=== PATIENT | female | born 1955 | race Caucasian/White ===

== ENCOUNTER 2017-07-31 08:55 | Day surgery (SDC) | payer BC ==
[~2017-07-31 08:55] MED LIST: Lactated Ringers 1,000 ML IV SCH; Lidocaine 1%/Sod Bicarbonate in NS 8.4% 1 ML Syringe IDERM PRN; Sodium Chloride 0.9% 10 ML Syringe FLUSH PRN
--- NOTE | 2017-07-31 09:45 | PCM.PREANE ---
Preanesthetic Assessment - Procedure Proposed Procedure: Diagnostic colonsocopy - Anesthesia/Transfusion/Family Hx Anesthesia History: Prior Anesthesia Without Reaction Family History of Anesthesia Reaction: No Transfusion History: Prior Transfusion Without Reaction Type of Transfusion Reactions: Reports: Unknown Additional History: Parkinsons, hairy cell leukemia - Review of Systems General: No Symptoms Pulmonary: Other (INGE with CPAP) Cardiovascular: No Symptoms Gastrointestinal: No Symptoms Neurological: No Symptoms Other: Reports: Liver Problems (fatty liver ), Thyroid Problems (hypothyroid ), Depression - Physical Assessment NPO Status Date: 07/30/17 NPO Status Time: 19:30 Pulse: 70 O2 Sat by Pulse Oximetry: 95 Respiratory Rate: 18 Temperature: 36.9 C Height: 1.68 m Weight: 114 kg ASA Class: 2 Mental Status: Alert & Oriented x3 Airway Class: Mallampati = 3 Dentition: Reports: Normal Dentition Thyro-Mental Finger Breadths: 2 Mouth Opening Finger Breadths: 3 ROM/Head Extension: Full Lungs: Clear to Auscultation, Normal Respiratory Effort Cardiovascular: Regular Rate, Regular Rhythm - Allergies Allergies/Adverse Reactions: Allergies Allergy/AdvReac Type Severity Reaction Status Date / Time amoxicillin Allergy Rash Verified 07/30/17 16:36 Penicillins Allergy Rash Verified 07/30/17 16:36 - Blood Blood Available: No Product(s) Available: None - Anesthesia Plan Pre-Op Medication Ordered: None - Acknowledgements Anesthesia Type Planned: MAC Pt an Appropriate Candidate for the Planned Anesthesia: Yes Alternatives and Risks of Anesthesia Discussed w Pt/Guardian: Yes Pt/Guardian Understands and Agrees with Anesthesia Plan: Yes PreAnesthesia Questionnaire HEENT History: Reports: Glaucoma, Impaired Vision Other Cardiovascular History: dependent edema Respiratory History: Reports: Sleep Apnea Gastrointestinal History: Reports: Other (See Below) Other Gastrointestinal History: umbilical hernia with repair, hematochezia, rectal bleeding, hemorrhoids, colon polyps, diverticulosis, fatty liver Genitourinary History: Reports: Renal Calculus LVN HOME HEALTH History: Reports: Spontaneous Musculoskeletal History: Reports: Fracture, Other (See Below) Other Musculoskeletal History: carpal tunnel syndrome, forearm contusion Neurological History: Reports: Parkinson's Psychiatric History: Reports: Depression Endocrine/Metabolic History: Reports: Hyperthyroidism, Hypothyroidism, Obesity/ BMI 30+ Hematologic History: Reports: None Immunologic History: Reports: None Oncologic (Cancer) History: Reports: Leukemia 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 Dermatologic History: Reports: Other (See Below) Other Dermatologic History: rash - Past Surgical History Head Surgeries/Procedures: Reports: None HEENT Surgical History: Reports: Tonsillectomy Respiratory Surgical History: Reports: None GI Surgical History: Reports: Colonoscopy, Hernia Repair/Other Female Surgical History: Reports: None Male Surgical History: Reports: None Endocrine Surgical History: Reports: Thyroidectomy, Other (See Below) Other Endocrine Surgeries/Procedures: thyroid ablation Neurological Surgical History: Reports: None Musculoskeletal Surgical History: Reports: Carpal Tunnel, ORIF Oncologic Surgical History: Reports: None - SUBSTANCE USE Smoking Status *Q: Never Smoker Second Hand Smoke Exposure: No Recreational Drug Use History: No - HOME MEDS Home Medications: Home Meds Carbidopa/Levodopa [Carbidopa-Levodopa 25-100] 1.5 tab PO Q4HR 10/18/14 [History ] Sertraline [Zoloft] 200 mg PO DAILY 10/18/14 [History] Levothyroxine Sodium [Synthroid] 125 mcg PO DAILY 03/07/16 [History] Hydrocortisone Acetate [Anucort-HC] 25 mg RECTAL ASDIRECTED PRN 07/30/17 [ History] - CURRENT (IN HOUSE) MEDS Current Meds: Current Medications Lactated Ringer's (Ringers, Lactated) 1,000 mls @ 125 mls/hr IV ASDIRECTED OSBALDO Stop: 07/31/17 23:00 Lidocaine/Sodium Bicarbonate (Buffered Lidocaine 1% In Ns 8.4%) 0.25 ml IDERM ONETIME PRN PRN Reason: Prior to IV Start Stop: 07/31/17 18:00 Sodium Chloride (Saline Flush) 10 ml FLUSH ASDIRECTED PRN PRN Reason: Keep Vein Open Stop: 07/31/17 18:00
[2017-07-31] MEDS ORDERED: fentaNYL 100 MCG/2 ML SDV ONE (09:46)
[2017-07-31] MEDS ORDERED: Propofol 200 MG/20 ML SDV ONE (09:46)
[2017-07-31] MEDS ORDERED: Lidocaine 1% 4 ML ONE (09:46)
--- NOTE | 2017-07-31 11:06 | PCM.OPNOTE ---
- General Post-Op/Procedure Note Date of Surgery/Procedure: 07/31/17 Operative Procedure(s): colonoscopy to cecum Pre Op Diagnosis: rectal bleeding Post-Op Diagnosis: Same Anesthesia Technique: MAC Primary Surgeon: Jose Smith EBL in mLs: 0 Complications: None Condition: Good
--- NOTE | 2017-07-31 11:08 | PCM48HPAN ---
Post Anesthesia Note - EVALUATION WITHIN 48HRS OF ANESTHETIC Vital Signs in Normal Range: Yes Patient Participated in Evaluation: Yes Respiratory Function Stable: Yes Airway Patent: Yes Cardiovascular Function Stable: Yes Hydration Status Stable: Yes Pain Control Satisfactory: Yes Nausea and Vomiting Control Satisfactory: Yes Mental Status Recovered: Yes
[2017-07-31 13:20] VITALS: BP 126/81
--- NOTE | 2017-08-01 06:49 | OR ---
DATE OF OPERATION: 07/31/2017 SURGEON: Jose Smith MD PREOPERATIVE DIAGNOSIS: Rectal bleeding. POSTOPERATIVE DIAGNOSIS: Rectal bleeding. OPERATION PERFORMED: Colonoscopy to cecum. FINDINGS: Inflamed hemorrhoids as the source of bleeding. There were no angiodysplasias, neoplasias, large tumor masses, ulcerations, or diverticulum. ANESTHESIA: Procedure done under IV sedation. DESCRIPTION OF PROCEDURE: The patient was taken to the endoscopy room, placed in a supine position, connected to monitoring equipment, and given IV sedation. She was placed in the left lateral position. Perianal area showed external hemorrhoids and hemorrhoidal tags. Rectal exam showed good sphincter tone. A video Olympus colonoscope was then introduced into the rectum and threaded up without problem to the cecum, where the appendicular orifice and ileocecal valve were noted. Prep was excellent. [place] cleansing score grade A. The scope was slowly withdrawn showing the cecum, ascending colon, transverse colon, descending colon, sigmoid colon, and rectum. Retroflexed view was done. Inflamed hemorrhoids were noted. The patient tolerated the procedure, sent to recovery room in a stable condition, and will be followed up as needed in the clinic. ESTIMATED BLOOD LOSS: MMODAL /[id number]
== END 2017-07-31 11:46 | disposition home or self-care (01) ==
LOC: JD.SDS 08:55
PROVIDERS: ATTEND Surgery
DX: K64.9 Unspecified hemorrhoids (principal); E66.9 Obesity, unspecified; Z68.41 Body mass index [BMI] 40.0-44.9, adult; G20 Parkinson's disease; Z86.010 Personal history of colon polyps; Z88.0 Allergy status to penicillin; G47.33 Obstructive sleep apnea (adult) (pediatric)
CPT/HCPCS: 45378; J3010; J7120; J2704

== ENCOUNTER 2020-10-14 23:10 | Emergency (ER) | payer MEDICARE, BC ==
[2020-10-14 23:34] VITALS: BP 165/93; PULSE 83
--- NOTE | 2020-10-15 01:42 | EDM.PDOC ---
ED HPI GENERAL MEDICAL PROBLEM - General Chief Complaint: Neuro Symptoms/Deficits Stated Complaint: PINCHED NERVE BLADDER CONTROL ISSUES Time Seen by Provider: 10/15/20 00:01 Source of Information: Reports: Patient, RN Notes Reviewed - History of Present Illness INITIAL COMMENTS - FREE TEXT/NARRATIVE: 65 yr old female with R flank and back pain that started last evening. Pain is now worse. Has had some dysuria and 2 or 3 episodes of "incontenence". She does have hx of Parkinson's, "not doing well with that currently". No fever or chills. Right Lower Flank Pain Score (Numeric/FACES): 6 - Related Data Allergies Allergy/AdvReac Type Severity Reaction Status Date / Time amoxicillin Allergy Rash Verified 10/14/20 23:25 Penicillins Allergy Rash Verified 10/14/20 23:25 Home Meds: Home Meds Carbidopa/Levodopa [Carbidopa-Levodopa 25-100] 1.5 tab PO Q4HR 10/18/14 [History] Sertraline [Zoloft] 200 mg PO DAILY 10/18/14 [History] Levothyroxine Sodium [Synthroid] 125 mcg PO DAILY 03/07/16 [History] Hydrocortisone Acetate [Anucort-HC] 25 mg RECTAL ASDIRECTED PRN 07/30/17 [History] Hydrocodone/Acetaminophen [Hydrocodone-Acetamin 5-325 mg] 1 each PO Q6HR PRN #10 tab 10/15/20 [Rx] Past Medical History HEENT History: Reports: Glaucoma, Impaired Vision Other Cardiovascular History: dependent edema Respiratory History: Reports: Sleep Apnea Gastrointestinal History: Reports: Other (See Below) Other Gastrointestinal History: umbilical hernia with repair, hematochezia, rectal bleeding, hemorrhoids, colon polyps, diverticulosis, fatty liver Genitourinary History: Reports: Renal Calculus 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: Spontaneous Musculoskeletal History: Reports: Fracture, Other (See Below) Other Musculoskeletal History: carpal tunnel syndrome, forearm contusion Neurological History: Reports: Parkinson's Psychiatric History: Reports: Depression Endocrine/Metabolic History: Reports: Hyperthyroidism, Hypothyroidism, Obesity/BMI 30+ Hematologic History: Reports: None Immunologic History: Reports: None Oncologic (Cancer) History: Reports: Leukemia 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 Dermatologic History: Reports: Other (See Below) Other Dermatologic History: rash - Infectious Disease History Infectious Disease History: Reports: Novel Coronavirus - Past Surgical History Head Surgeries/Procedures: Reports: None HEENT Surgical History: Reports: Tonsillectomy Respiratory Surgical History: Reports: None GI Surgical History: Reports: Colonoscopy, Hernia Repair/Other Female Surgical History: Reports: None Endocrine Surgical History: Reports: Thyroidectomy, Other (See Below) Other Endocrine Surgeries/Procedures: thyroid ablation Neurological Surgical History: Reports: None Musculoskeletal Surgical History: Reports: Carpal Tunnel, ORIF Oncologic Surgical History: Reports: None Social & Family History - Family History Endocrine/Metabolic: Reports: Diabetes, type II - Tobacco Use Tobacco Use Status *Q: Never Tobacco User Second Hand Smoke Exposure: No - Caffeine Use Caffeine Use: Reports: Tea - Recreational Drug Use Recreational Drug Use: No ED ROS GENERAL - Review of Systems Review Of Systems: See Below Constitutional: Reports: Chills. Denies: Fever HEENT: Reports: No Symptoms Respiratory: Reports: No Symptoms Cardiovascular: Denies: Chest Pain GI/Abdominal: Denies: Abdominal Pain Musculoskeletal: Reports: Back Pain. Denies: Leg Pain Skin: Reports: No Symptoms Neurological: Reports: Tremors (chronic) ED EXAM, GENERAL - Physical Exam Exam: See Below General Appearance: Alert, Mild Distress Throat/Mouth: Normal Inspection Head: Atraumatic Neck: Supple Respiratory/Chest: No Respiratory Distress, Lungs Clear, Normal Breath Sounds Cardiovascular: Regular Rate, Rhythm GI/Abdominal: Soft, Non-Tender Back Exam: CVA Tenderness (R). No: CVA Tenderness (L) Extremities: No: Leg Pain Neurological: No Motor/Sensory Deficits Skin Exam: Warm, Dry, Normal Color Course - Vital Signs Last Recorded V/S: Last Vital Signs Temp 97.3 F 10/14/20 23:28 Pulse 83 10/14/20 23:28 Resp 20 10/14/20 23:28 BP 165/93 H 10/14/20 23:28 Pulse Ox 92 L 10/14/20 23:28 - Orders/Labs/Meds Labs: Laboratory Tests 10/15/20 10/15/20 Range/Units 00:25 01:00 WBC 11.06 H (3.98-10.04) K/mm3 RBC 4.63 (3.98-5.22) M/mm3 Hgb 13.4 (11.2-15.7) gm/dl Hct 42.0 (34.1-44.9) % MCV 90.7 (79.4-94.8) fl MCH 28.9 (25.6-32.2) pg MCHC 31.9 L (32.2-35.5) g/dl RDW Std Deviation 49.3 H (36.4-46.3) fL Plt Count 241 (182-369) K/mm3 MPV 10.0 (9.4-12.3) fl Neut % (Auto) 89.0 H (34.0-71.1) % Lymph % (Auto) 7.1 L (19.3-51.7) % [place] % (Auto) 3.3 L (4.7-12.5) % Eos % (Auto) 0 L (0.7-5.8) Baso % (Auto) 0.3 (0.1-1.2) % Neut # (Auto) 9.85 H (1.56-6.13) K/mm3 Lymph # (Auto) 0.78 L (1.18-3.74) K/mm3 [place] # (Auto) 0.37 H (0.24-0.36) K/mm3 Eos # (Auto) 0.00 L (0.04-0.36) K/mm3 Baso # (Auto) 0.03 (0.01-0.08) K/mm3 Manual Slide Review Abnormal smear Urine Color Light yellow (Yellow) Urine Appearance Slt cloudy H (Clear) Urine pH 7.0 (5.0-8.0) Ur Specific [place] 1.025 (1.005-1.030) Urine Protein 1+ H (Negative) Urine Glucose (UA) Negative (Negative) Urine Ketones Negative (Negative) Urine Occult Blood 2+ H (Negative) Urine Nitrite Negative (Negative) Urine Bilirubin Negative (Negative) Urine Urobilinogen 0.2 (0.2-1.0) Ur Leukocyte Esterase Negative (Negative) U Hyaline Cast (Auto) 0-5 (0-5) /lpf Urine RBC 5-10 H (0-5) /hpf Urine WBC 0-5 (0-5) /hpf Ur Squamous Epith Cells 0-5 (0-5) /hpf Urine Bacteria Rare (FEW) /hpf Urine Mucus Not seen (FEW) /hpf Meds: Medications Discontinued Medications Generic Name Dose Route Start Last Admin Trade Name Freq PRN Reason Stop Dose Admin Hydrocodone Bitart/Acetaminophen 1 tab 10/15/20 01:54 10/15/20 02:23 Acetaminophen/Hydrocodone 325-5 Mg Tab PO 10/15/20 01:55 1 tab ONETIME ONE Administration - Re-Assessments/Exams Free Text/Narrative Re-Assessment/Exam: 10/15/20 06:13 Ua was clear, no infection, discharge instr. as documented. Departure - Departure Time of Disposition: 01:55 Disposition: Home, Self-Care 01 Condition: Fair Clinical Impression: Back pain - Discharge Information Prescriptions: Hydrocodone/Acetaminophen [Hydrocodone-Acetamin 5-325 mg] 1 each PO Q6HR PRN #10 tab PRN Reason: Pain Instructions: Acute Back Pain, Adult Referrals: PCP,None [Primary Care Provider] - Forms: ED Department Discharge Additional Instructions: Rest back. Continue to alternate ice and heat. Tylenol or acetaminophen for mild to moderate pain or hydrocodone if needed for severe pain. See your Chiropractor Friday as planned. Return to ED as needed. Sepsis Event Note (ED) - Evaluation Sepsis Screening Result: No Definite Risk - Focused Exam Vital Signs: Vital Signs Temp Pulse Resp BP Pulse Ox 10/14/20 23:28 97.3 F 83 20 165/93 H 92 L
[2020-10-15] MEDS ORDERED: Acetaminophen/HYDROcodone 325-5 MG Tab PO ONE (01:54)
== END 2020-10-15 02:00 | disposition home or self-care (01) ==
LOC: JD.ED 23:10
DX: M54.9 Dorsalgia, unspecified (principal); G20 Parkinson's disease; Z88.0 Allergy status to penicillin; E66.9 Obesity, unspecified; Z68.41 Body mass index [BMI] 40.0-44.9, adult; Z79.899 Other long term (current) drug therapy
CPT/HCPCS: 36415; 81001; 85025; 99284; A9270

== ENCOUNTER 2021-10-18 07:35 | Day surgery (SDC) | payer MEDICARE, BC ==
[~2021-10-18 07:35] MED LIST changes: +Cefuroxime 10 MG/ML SYRINGE EYELF SCH; -Lactated Ringers 1,000 ML IV SCH; +Lidocaine 1% PF 2 ML SDV INJECT SCH; -Lidocaine 1%/Sod Bicarbonate in NS 8.4% 1 ML Syringe IDERM PRN; +Pilocarpine 4% Ophth Soln 15 ML Bot EYELF SCH; -Sodium Chloride 0.9% 10 ML Syringe FLUSH PRN
[2021-10-18] MEDS: Polymyxin B/Trimethoprim 10 ML Bottle EYELF SCH ×3 (07:36→09:34)
[2021-10-18] MEDS: Brimonidine 0.2% Ophth Soln 5 ML Bottle EYELF SCH ×3 (07:40→09:34)
[2021-10-18] MEDS: Phenylephrine 2.5% Ophth Soln 2 ML Bot EYELF SCH ×5 (07:45→09:15)
[2021-10-18] MEDS: Tropicamide 1% Ophth Soln 15 ML Bottle EYELF SCH ×4 (07:51→08:30)
[2021-10-18] MEDS: Tetracaine HCl/PF 0.5% 4 ML Bottle EYEBOTH SCH ×4 (09:06→09:24)
[2021-10-18 09:47] VITALS: BP 138/73; PULSE 60
== END 2021-10-18 09:45 | disposition home or self-care (01) ==
LOC: JD.SDS 07:35
PROVIDERS: ATTEND Ophthalmology
DX: H25.813 Combined forms of age-related cataract, bilateral (principal); F32.A Depression, unspecified; G47.30 Sleep apnea, unspecified; E66.9 Obesity, unspecified; E03.9 Hypothyroidism, unspecified; Z86.16 Personal history of COVID-19; Z79.899 Other long term (current) drug therapy; Z98.890 Other specified postprocedural states; Z88.0 Allergy status to penicillin; Z79.890 Hormone replacement therapy; Z68.41 Body mass index [BMI] 40.0-44.9, adult
CPT/HCPCS: 66984; J0697; C1780

== ENCOUNTER 2021-11-15 11:40 | Day surgery (SDC) | payer MEDICARE, BC ==
[~2021-11-15 11:40] MED LIST changes: -Cefuroxime 10 MG/ML SYRINGE EYELF SCH; +Cefuroxime 10 MG/ML SYRINGE EYERT SCH; -Pilocarpine 4% Ophth Soln 15 ML Bot EYELF SCH; +Pilocarpine 4% Ophth Soln 15 ML Bot EYERT SCH
[2021-11-15] MEDS: Polymyxin B/Trimethoprim 10 ML Bottle EYERT SCH ×3 (12:05→13:48)
[2021-11-15] MEDS: Brimonidine 0.2% Ophth Soln 5 ML Bottle EYERT SCH ×3 (12:10→13:48)
[2021-11-15] MEDS: Phenylephrine 2.5% Ophth Soln 2 ML Bot EYERT SCH ×5 (12:15→13:29)
[2021-11-15] MEDS: Tropicamide 1% Ophth Soln 15 ML Bottle EYERT SCH ×4 (12:20→13:00)
[2021-11-15] MEDS: Tetracaine HCl/PF 0.5% 4 ML Bottle EYEBOTH SCH ×4 (13:09→13:36)
[2021-11-15 13:59] VITALS: BP 145/90; PULSE 73
== END 2021-11-15 13:58 | disposition home or self-care (01) ==
LOC: JD.SDS 11:40
PROVIDERS: ATTEND Ophthalmology
DX: H25.813 Combined forms of age-related cataract, bilateral (principal); H16.223 Keratoconjunctivitis sicca, not specified as Sjogren's, bilateral; F32.A Depression, unspecified; G20 Parkinson's disease; Z98.890 Other specified postprocedural states; Z79.899 Other long term (current) drug therapy; Z88.0 Allergy status to penicillin; Z96.1 Presence of intraocular lens
CPT/HCPCS: 66984; J0697; C1780

== ENCOUNTER 2024-06-09 10:29 | Day surgery (SDC) | payer MEDICARE, BC ==
[~2024-06-09 10:29] MED LIST changes: -Cefuroxime 10 MG/ML SYRINGE EYERT SCH; -Lidocaine 1% PF 2 ML SDV INJECT SCH; -Pilocarpine 4% Ophth Soln 15 ML Bot EYERT SCH; +Sodium Chloride 0.9% 10 ML Syringe FLUSH PRN; +Sodium Chloride 0.9% 10 ML Syringe FLUSH SCH
[2024-06-09] MEDS ORDERED: Lidocaine 1% 4 ML ONE (10:36)
[2024-06-09] MEDS ORDERED: Propofol 200 MG/20 ML SDV ONE (10:36)
[2024-06-09] MEDS: Lactated Ringers 1,000 ML IV SCH (11:15)
[2024-06-09] MEDS: Bupivacaine 0.5% 30 ML SDV ONE (11:48)
[2024-06-09 13:20] VITALS: BP 108/78; PULSE 60
== END 2024-06-09 12:35 | disposition home or self-care (01) ==
LOC: JD.SDS 10:29
PROVIDERS: ATTEND Surgery
DX: D12.0 Benign neoplasm of cecum (principal); D12.3 Benign neoplasm of transverse colon; K63.5 Polyp of colon; K64.8 Other hemorrhoids; K64.4 Residual hemorrhoidal skin tags; K57.30 Diverticulosis of large intestine without perforation or abscess without bleeding; E03.9 Hypothyroidism, unspecified; F32.0 Major depressive disorder, single episode, mild; E78.00 Pure hypercholesterolemia, unspecified; G20.A1 Parkinson's disease without dyskinesia, without mention of fluctuations; Z79.890 Hormone replacement therapy; Z79.899 Other long term (current) drug therapy; Z88.0 Allergy status to penicillin; Z86.0100 Personal history of colon polyps, unspecified
CPT/HCPCS: 00811; 88305; 99100; J0665; J2704; J3490; J7120